=== PATIENT | female | born 1935 | race Caucasian/White ===

== ENCOUNTER 2017-05-20 09:39 | Outpatient (CLI) | payer MEDICARE ==
[2017-05-20] MEDS ORDERED: Gadobenate Dimeglumine 529 MG/1 ML (20ML VIAL) ONE (13:43)
== END 2017-05-20 09:40 | disposition home or self-care (01) ==
LOC: BICMRI 09:39
PROVIDERS: ATTEND Internal Medicine
DX: T85.43XD Leakage of breast prosthesis and implant, subsequent encounter (principal); Z98.82 Breast implant status
CPT/HCPCS: A9579; C8908

== ENCOUNTER 2018-01-07 09:35 | Observation (INO) | payer MEDICARE ==
[2018-01-07] MEDS ORDERED: Ondansetron PF 4 MG/2 ML Vial ONE (10:31)
[2018-01-07 10:35] LABS: #Basophils 0.1 thou/uL (0.0-0.2); #Lymphocytes 1.9 thou/uL (1.20-3.40); #Monocytes 0.7 thou/uL (0.11-0.59); #Neutrophils 4.9 thou/uL (1.40-6.50); %Basophils 0.7 % (0.0-1.0); %Eosinophils 0.4 % (0.0-10.0); %Lymphocytes 25.4 % (21.0-51.0); %Monocytes 9.3 % (0.0-10.0); %Neutrophils 64.2 % (42.0-75.0); Hemoglobin 14.4 g/dL (12.0-16.0); Mean Corpuscular HGB CONC 34.3 g/dL (32.0-36.0); Mean Corpuscular Hemoglobin 29.7 pg (27.0-31.0); Mean Corpuscular Volume 86.8 fL (78.0-98.0); Mean Platelet Volume 9.1 fL (7.4-10.4); Platelet Count 236 thou/uL (130-400); RBC Distribution Width 12.8 % (11.5-14.5); Red Blood Cell (RBC) Count 4.85 mill/uL (4.20-5.40); White Blood Cell (WBC) Count 7.6 thou/uL (4.8-10.8)
[2018-01-07] MEDS ORDERED: Ondansetron ODT 4 MG TAB ONE (10:52)
[2018-01-07] MEDS ORDERED: Ketorolac Tromethamine 30 MG/ML VIAL ONE (11:39)
[2018-01-07 12:51] LABS: Chloride 100 mmol/L (98-107); Potassium 3.6 mmol/L (3.5-5.1); Sodium 132 mmol/L (136-145)
[2018-01-07 12:52] LABS: Calcium 9.2 mg/dL (7.8-10.44); Glucose 97 mg/dL (83-110)
[2018-01-07 12:53] LABS: Globulin 2.8 g/dL (2.4-3.5); Protein, Total 6.8 g/dL (6.0-8.3)
[2018-01-07 12:54] LABS: Bilirubin, Total 0.5 mg/dL (0.2-1.2); Carbon Dioxide 22 mmol/L (23-31)
[2018-01-07 12:55] LABS: Alkaline Phosphatase 89 U/L (40-150)
[2018-01-07 12:56] LABS: BUN (Urea Nitrogen) 37 mg/dL (9.8-20.1); Calc. Creatinine Clearance 0 mL/min (70-130); Estimated GFR-MDRD 18
[2018-01-07 12:58] LABS: ALT (SGPT) 16 U/L (8-55); AST (SGOT) 29 U/L (5-34)
--- NOTE | 2018-01-07 13:11 | RAD ---
RIGHT WRIST THREE VIEWS: HISTORY: Right wrist pain after a fall. COMPARISON: None. FINDINGS: Three views of the right wrist show no evidence of acute fracture or dislocation. Moderate soft tiss ue swelling is seen. No degenerative changes are seen. IMPRESSION: Unremarkable examination. POS: [facility]
[2018-01-07 13:15] LABS: Anion Gap 14 mmol/L (10-20)
--- NOTE | 2018-01-07 14:26 | CT ---
CT HEAD WITHOUT CONTRAST: 01/07/2018 HISTORY: Fall. Trauma. Pain. COMPARISON: None. FINDINGS: The imaged paranasal sinuses/mastoid air cells are well aerated. No displaced calvarial fracture is noted. There is a small focal area of scalp swelling in right supraorbital region. There is no displaced calvarial fracture. There is atherosclerotic calcification of the cavernous carotid arteries and the distal right vertebr al artery. There is no intracranial hemorrhage, midline shift, or mass effect. There is mild cerebral volume lo ss. IMPRESSION: Small area of supraorbital soft tissue swelling involving the scalp, on the right. No associated int racranial hemorrhage or evidence for fracture. POS: [facility]
--- NOTE | 2018-01-07 14:27 | CT ---
CT C-SPINE WITHOUT CONTRAST: HISTORY: Neck injury The vertebral bodies are normal in height. There is degenerative disk narrowing at C4-5, C5-6, C6-7, and C7-T1. Degenerative facet changes are present. The facets are in normal alignment. At the C4-5 level, there is mild left and moderate right foraminal narrowing. At C5-6, there is asym metric left paracentral osteophyte change and appears to be a mild degree of canal stenosis and also some mild right-sided foraminal narrowing. There is no CT evidence for a fracture. The lung apices show emphysematous change. Incidental note is made of bilateral thyroid nodules. This would be better investigated with ultraso und. IMPRESSION: 1. No CT evidence of fracture. 2. Thyroid nodules which would be better investigated with ultrasound examination on a nonemergent b asis. POS: [facility]
[2018-01-07] MEDS ORDERED: Acetaminophen 325 MG TAB PO PRN (15:15)
[2018-01-07] MEDS ORDERED: Ondansetron PF 4 MG/2 ML Vial IVP PRN (15:15)
[2018-01-07] MEDS ORDERED: Ondansetron ODT 4 MG TAB SL PRN (15:15)
[2018-01-07 15:50] VITALS: BMI 27.2
[2018-01-07] MEDS ORDERED: Melatonin 3 MG TAB PO PRN (17:11)
--- NOTE | 2018-01-07 18:50 | HP ---
DATE OF ADMISSION: 01/07/2018 PRIMARY CARE PHYSICIAN: Dr. Jw Ledesma. CHIEF COMPLAINT: Recent fall and TRACEY. HISTORY OF PRESENT ILLNESS: This is a pleasant 82-year-old female who presents to the hospital today for recent fall at home, she was walking to the bathroom with her oxygen cord and as she was walking down the green, the cord wrapped around her foot and caused her to trip. She had hit her forehead on her tile floor and landed on right wrist. She had stated that she felt dizzy after hitting her head , but after sitting there for a few moments with the symptoms resolved. She states she also had a fr ontal lobe headache, but denies any other symptoms. She has a history of PE x2 on Xarelto, COPD, rec ent cellulitis, atrial fibrillation, GERD, hypertension, osteoarthritis, and COPD. She states last w [place] she was bitten by a spider and caused a reddened area on her left upper thigh. She was seen by h er PCP, Dr. Ledesma, who had treated her with oral doxycycline, she had taken doxycycline for a total of 4 days. She states during that time, she also developed some nausea and frequent bouts of diarrh ea. She states she had stopped doxycycline on 01/01/2018. She states since then she has had several bouts of diarrhea a day, she states she would have 5-6 bouts of diarrhea daily. She states her PCP, Dr. Ledesma started her on Lomotil, which she took one dose yesterday, she states since she has not had a bowel movement. She has no chest pain. No shortness of breath or abdominal pain. No nausea o r vomiting. No fever or chills. No recent travel. During the visit in the ER, it was found that he r BMP show creatinine of 2.55, likely secondary to dehydration from diarrhea. She was started on IV fluids with normal saline. She will be admitted overnight for workup and monitoring of her TRACEY. PAST MEDICAL HISTORY: COPD, atrial fibrillation, hypertension, dyslipidemia, pulmonary embolism x2, GERD, osteoarthritis. PAST SURGICAL HISTORY: Appendectomy, cholecystectomy, hysterectomy, bilateral salpingo-oophorectomy, tonsillectomy, history of pneumothorax with treatment of chest tube, arthroscopic knee surgery, lipo ma excision and cataract surgery. SOCIAL HISTORY: She is . She denies smoking, alcohol use and illicit drug use. PSYCHIATRIC HISTORY: Denies any psychiatric history. REVIEW OF SYSTEMS: CONSTITUTIONAL: Denies weight loss or weight gain. No fever or chills. SKIN: No rashes, no itching. Positive bruising anterior forehead from recent fall. EYES: Denies double vision or eye pain. ENT: Denies nose bleed, neck stiffness, pain, or tenderness. CARDIOVASCULAR: Denies chest pain, palpitations, dyspnea or orthopnea. RESPIRATORY: Denies shortness of breath, whe ezing, cough. GASTROINTESTINAL: Denies abdominal pain. No nausea, vomiting. Did report several tita uts of diarrhea over the last week; however, has not had a bowel movement in the last 24 hours. [place] TOURINARY: Denies any urgency, frequency, dysuria. MUSCULOSKELETAL: Denies any weakness or swellin g, mild pain in forehead. NEUROLOGIC: Denies anxiety or depression. ALLERGIES: ASPIRIN, CODEINE, SULFA, TETRACYCLINE. CURRENT MEDICATIONS: 1. Losartan 100 mg daily. 2. Pravastatin 40 mg at bedtime. 3. Anoro Ellipta 62.5 mcg/25 mcg daily. 4. Citalopram 10 mg p.o. daily. 5. Multaq 400 mg oral twice daily. 6. Methadone 40 mg p.o. twice daily. 7. Aricept 5 mg p.o. daily. 8. Gabapentin 300 mg oral daily. 9. Diltiazem 360 mg p.o. daily. 10. Xarelto 20 mg daily. 11. Levothyroxine 75 mcg p.o. daily. PHYSICAL EXAMINATION: VITAL SIGNS: BP 163/72, pulse 65, respirations 20, temperature 97.9 degrees Fahrenheit, O2 saturatio ns 92% on room air. GENERAL: Patient is alert and oriented x3. Mild acute distress noted due to headache. HEENT: Normocephalic. Trauma to forehead with bruise noted. Tenderness to palpation. Pupils are r ound and reactive to light. Extraocular muscles intact. ENT: Oropharynx is within normal limits. Moist mucous membranes. No erythema or exudates noted. NECK: No palpable lymph nodes. No thyromegaly. No carotid bruit. No JVD noted. LUNGS: Clear to auscultation bilaterally. No wheezes, no rhonchi, no rales. CARDIAC: Positive S1, S2, currently in sinus rhythm on the monitor. No murmur, no gallop, no rub no day. ABDOMEN: Obesity. Soft, nontender, bowel sounds present, nondistended. No masses noted. EXTREMITIES: No obvious edema. Strength 5+ bilaterally both upper and lower extremities. Moves all extremities equally. SKIN: No rashes noted. Bruising to forehead noted. NEUROLOGICAL: Nonfocal deficits noted. Moves all extremities. Strength 5+ bilaterally. PSYCHIATRIC: Normal mood and affect. SIGNIFICANT LABORATORY DATA: WBC 7.6, RBC 4.85, hemoglobin 14.4. Sodium 132, potassium 3.6, anion g ap 14, creatinine 2.55, GFR 18, glucose 97, AST 29, ALT 16, alkaline phosphatase 89. DIAGNOSTIC IMAGING: Right wrist x-ray was found to be unremarkable. Brain CT showed a small area ugarte praorbital soft tissue swelling involving the scalp on the right, but no hemorrhage, no evidence of f racture noted. CT cervical spine showed no CT evidence of fracture. ASSESSMENT AND PLAN: 1. Acute kidney injury, likely secondary to dehydration. We will start patient on IV fluids, normal saline at 75 mL an hour. Recheck BMP in the morning. Continue home medications. If no improvement with creatinine, we will obtain renal ultrasound and possibly consult Nephrology. 2. Fall, patient is stable at the moment, monitor patient's vital signs and overall prognosis. Marie ent is able to ambulate around the room without any dizziness or syncope like symptoms. Depending on the patient's progress, we will also consider PT evaluation. 3. Hypertension, continue on patient's home medications and monitor vital signs closely. 4. Chronic obstructive pulmonary disease, patient is stable at the moment, we will add oxygen as nee ded and maintain O2 saturations above 92%. 5. Hypertension, we will continue patient's home medications and monitor closely. Further adjustmen ts depending patient's progress. 6. Dyslipidemia. Continue patient's home medication of pravastatin. 7. History of atrial fibrillation, patient remains in sinus rhythm on the monitor. We will continue patient's anticoagulation with Xarelto along with her Cardizem. We will monitor for changes on the monitor. Currently asymptomatic. 8. History of pulmonary embolism, as above. Continue on patient's home dose of anticoagulation of X arelto, currently denies any chest pain, shortness of breath or symptoms at this time. 9. Deep venous thrombosis prophylaxis with home medication of Xarelto. 10. Gastrointestinal prophylaxis with Protonix 40 mg p.o. twice per daily. Code status discussed with the patient. Patient will be made FULL CODE. Disposition plan based on clinical course. Patient will be monitored overnight and further medical m anagement pending the patient's progress.
[2018-01-07] MEDS: Sodium Chloride 0.9% 1,000 ML IV SCH (20:31)
[2018-01-07] MEDS ORDERED: Famotidine 20 MG TAB PO SCH (21:00)
[2018-01-07] MEDS ORDERED: Donepezil HCl 5 MG TAB PO SCH (21:00)
[2018-01-08 05:18] LABS: #Lymphocytes 2.4 thou/uL (1.20-3.40); #Monocytes 0.6 thou/uL (0.11-0.59); #Neutrophils 2.9 thou/uL (1.40-6.50); %Basophils 0.1 % (0.0-1.0); %Eosinophils 0.4 % (0.0-10.0); %Lymphocytes 40.5 % (21.0-51.0); %Monocytes 10.4 % (0.0-10.0); %Neutrophils 48.6 % (42.0-75.0); Hemoglobin 11.2 g/dL (12.0-16.0); Mean Corpuscular HGB CONC 34.2 g/dL (32.0-36.0); Mean Corpuscular Hemoglobin 29.9 pg (27.0-31.0); Mean Corpuscular Volume 87.4 fL (78.0-98.0); Mean Platelet Volume 8.7 fL (7.4-10.4); Platelet Count 177 thou/uL (130-400); RBC Distribution Width 12.5 % (11.5-14.5); Red Blood Cell (RBC) Count 3.75 mill/uL (4.20-5.40); White Blood Cell (WBC) Count 5.9 thou/uL (4.8-10.8)
[2018-01-08 05:26] LABS: Anion Gap 11 mmol/L (10-20); BUN (Urea Nitrogen) 33 mg/dL (9.8-20.1); Calc. Creatinine Clearance 29 mL/min (70-130); Calcium 8.4 mg/dL (7.8-10.44); Carbon Dioxide 22 mmol/L (23-31); Chloride 107 mmol/L (98-107); Estimated GFR-MDRD 27; Glucose 92 mg/dL (83-110); Potassium 3.7 mmol/L (3.5-5.1); Sodium 136 mmol/L (136-145)
[2018-01-08] MEDS ORDERED: Levothyroxine 150 MCG TAB PO SCH (06:00)
[2018-01-08] MEDS ORDERED: Rivaroxaban 10 MG TAB PO SCH (06:00)
[2018-01-08] MEDS: Dronedarone HCl 400 MG TAB PO SCH ×2 (08:47→17:15)
[2018-01-08] MEDS: Sodium Chloride 0.9% 1,000 ML IV SCH (08:55)
[2018-01-08] MEDS ORDERED: Gabapentin 300 MG CAP PO SCH (09:00)
[2018-01-08] MEDS ORDERED: Escitalopram Oxalate 10 mg Tablet PO SCH (09:00)
[2018-01-08 11:58] VITALS: TEMP 97.9
[2018-01-08] MEDS ORDERED: hydrALAZINE 20 MG/ML VIAL SLOW IVP PRN (13:08)
[2018-01-08 13:41] LABS: Anion Gap 13 mmol/L (10-20); BUN (Urea Nitrogen) 25 mg/dL (9.8-20.1); Calc. Creatinine Clearance 35 mL/min (70-130); Calcium 8.5 mg/dL (7.8-10.44); Carbon Dioxide 19 mmol/L (23-31); Chloride 109 mmol/L (98-107); Estimated GFR-MDRD 34; Glucose 109 mg/dL (83-110); Potassium 3.6 mmol/L (3.5-5.1); Sodium 137 mmol/L (136-145)
[2018-01-08] MEDS ORDERED: Diphenoxylate HCl/Atropine Tablet PO PRN (14:55)
[2018-01-08 16:01] VITALS: BP 147/67
--- NOTE | 2018-01-08 19:33 | DIS ---
DATE OF ADMISSION: 01/07/2018 DATE OF DISCHARGE: 01/08/2018 DISCHARGE DIAGNOSES: 1. Acute on chronic kidney disease, improving. 2. Diarrhea, stable. 3. Fall, stable. 4. Hypertension, stable. 5. History of chronic obstructive pulmonary disease, stable. CONSULTATIONS: None. PERTINENT LABORATORY DATA: WBC 5.9, RBC 3.75, hemoglobin 11.2. Sodium 137, potassium 3.6, anion gap 13, BUN on admission 37, then trended down to 33 and then 25, creatinine on admission 2.55, trended down to 1.81 then 1.49. GFR 18-27, then 234, glucose 109. DIAGNOSTIC IMAGING: CT of head showed small area of supraorbital soft tissue swelling involving the scalp on the right, no associated intracranial hemorrhage or evidence of fracture, CT of the neck marie wed no CT evidence of fracture. Right wrist x-ray showed no evidence of acute fracture or dislocatio n with moderate soft tissue swelling. MICROBIOLOGY: Stool culture negative, C. difficile negative. HOSPITAL COURSE: Ms. Gil is a pleasant 82-year-old female who had presented to the hospital [facility] post fall at home, she had tripped over her oxygen cord walking to the bathroom. She had hit he r head on the tile floor and landed on her right wrist. She had presented with right forehead contus ion along with tenderness to palpation and she had some complaints of right wrist pain. Further diag nostic imaging showed no brain bleed or fracture, did show some soft tissue swelling; however, stable . Right wrist x-ray showed no fracture or dislocation. BMP did show her creatinine 2.55, therefore she was observed overnight for acute on chronic kidney disease. She had several episodes of loose st ools over the last week secondary to doxycycline. She had taken 4 doses her 4 days of doxycycline as outpatient for spider bite. This bite had resolved prior to coming into the hospital. She was roel day with IV normal saline. BMP was closely monitored and it was shown that creatinine trended downwa rd to 1.49. During hospital course, stool cultures were obtained; however, were unremarkable, C. dif f was found to be negative. She was restarted on her home medication of Lomotil that she took for he r diarrhea. Prior to discharge, she was seen and examined with at bedside, she had no compla ints of chest pain, shortness of breath or abdominal pain. She had no symptoms of dizziness or light headedness. She was alert and oriented x4. She was able to ambulate down the green without any acute symptoms. She was instructed to follow up with her primary paramedical aide, Dr. Marsh as outpatient, she was told to check labs and monitor renal function, she had verbalized her understanding and was s cheduled to check labs this week for Dr. Marsh. During [facility] Her home dose of losartan and HCTZ was held, vital signs remained stable; however, it was mandy mmended that she continue to hold these medications until her primary paramedical aide, Dr. Marsh determ ined that it was safe to restart as outpatient. She was found to be medically stable for discharge h [facility] on 01/08/2018. DISCHARGE MEDICATIONS: 1. Diltiazem 360 mg oral daily. 2. Gabapentin 300 mg at bedtime. 3. Aricept 5 mg daily. 4. Famotidine 40 mg oral twice daily. 5. Multaq 400 mg oral twice daily with meals. 6. Escitalopram 10 mg oral daily. 7. Anoro Ellipta one inhalation daily. 8. Pravastatin 40 mg at bedtime. 9. Albuterol sulfate 1 puff every 6 hours as needed for shortness of breath. 10. Xarelto 20 mg daily. 11. Levothyroxine 75 mcg oral daily. 12. Lomotil 1 tab oral 3 times daily as needed for diarrhea. 13. Xanax 0.5 mg oral at bedtime as needed for insomnia. 14. Ambien 5 mg oral at bedtime as needed for insomnia. FOLLOWUP: The patient was instructed to follow up with her primary care physician, Dr. Jw Ledesma in 1-2 weeks. She was also instructed to follow up with her primary paramedical aide, Dr. Marsh in 1-2 weeks along with recheck labs to monitor renal function in 3-4 days. CONDITION ON DISCHARGE: Stable. ACTIVITY: As tolerated. DIET: Renal diet. CODE STATUS: FULL CODE. DISPOSITION: Home on 01/08/2018.
== END 2018-01-08 17:50 | disposition home or self-care (01) ==
LOC: ERS 09:35 → 2SW 13:40
PROVIDERS: ADMIT Internal Medicine Infectious Disease; ATTEND Internal Medicine Infectious Disease
DX: I12.9 Hypertensive chronic kidney disease with stage 1 through stage 4 chronic kidney disease, or unspecified chronic kidney disease (principal); N18.9 Chronic kidney disease, unspecified; N17.9 Acute kidney failure, unspecified; S00.83XA Contusion of other part of head, initial encounter; R51 Headache; J44.9 Chronic obstructive pulmonary disease, unspecified; I48.91 Unspecified atrial fibrillation; K21.9 Gastro-esophageal reflux disease without esophagitis; M19.90 Unspecified osteoarthritis, unspecified site; E78.5 Hyperlipidemia, unspecified; E04.2 Nontoxic multinodular goiter; E66.9 Obesity, unspecified; Z68.27 Body mass index [BMI] 27.0-27.9, adult; Z86.711 Personal history of pulmonary embolism; Z79.01 Long term (current) use of anticoagulants; Z79.899 Other long term (current) drug therapy; Z88.1 Allergy status to other antibiotic agents; Z88.2 Allergy status to sulfonamides; Z88.5 Allergy status to narcotic agent; Z88.8 Allergy status to other drugs, medicaments and biological substances; W01.198A Fall on same level from slipping, tripping and stumbling with subsequent striking against other object, initial encounter
CPT/HCPCS: 70450; 72125; 73110; 80048 ×2; 80053; 85025 ×2; 87045; 87046; 87324; 87328; 87329; 87449 ×2; 87899 ×2; 93005; 96361 ×3; 96374; 99285; G0378 ×2; 36415; J1885; J2405; Q0162

== ENCOUNTER 2018-07-11 21:56 | Inpatient (IN) | payer MEDICARE ==
[2018-07-11 22:45] LABS: #Lymphocytes 2.4 thou/uL (1.20-3.40); #Monocytes 0.8 thou/uL (0.11-0.59); #Neutrophils 3.3 thou/uL (1.40-6.50); %Basophils 0.6 % (0.0-1.0); %Eosinophils 0.2 % (0.0-10.0); %Lymphocytes 36.8 % (21.0-51.0); %Monocytes 11.5 % (0.0-10.0); %Neutrophils 50.9 % (42.0-75.0); Hemoglobin 7.9 g/dL (12.0-16.0); Mean Corpuscular HGB CONC 34.2 g/dL (32.0-36.0); Mean Corpuscular Hemoglobin 30.5 pg (27.0-31.0); Mean Corpuscular Volume 89.2 fL (78.0-98.0); Mean Platelet Volume 8.3 fL (7.4-10.4); Platelet Count 257 thou/uL (130-400); RBC Distribution Width 13.5 % (11.5-14.5); Red Blood Cell (RBC) Count 2.58 mill/uL (4.20-5.40); White Blood Cell (WBC) Count 6.5 thou/uL (4.8-10.8)
--- NOTE | 2018-07-11 23:00 | RAD ---
XR Chest 1 View Portable History: [Weakness] Comparison: Chest radiograph January 2018 Findings: Bilateral calcified breast implants. Multiple calcified granulomas. Lungs are hyperinflated . Scarring both lung bases. Mild calcifications of the aorta. Heart size upper limits of normal. Cerclage wire projecting over the lateral left fifth rib. Impression: Chronic findings. No acute abnormality.
[2018-07-11 23:08] LABS: ALT (SGPT) 8 U/L (8-55); AST (SGOT) 15 U/L (5-34); Albumin 3.6 g/dL (3.4-4.8); Alkaline Phosphatase 72 U/L (40-150); BUN (Urea Nitrogen) 33 mg/dL (9.8-20.1); Bilirubin, Total 0.2 mg/dL (0.2-1.2); Calc. Creatinine Clearance 0 mL/min (70-130); Calcium 9.7 mg/dL (7.8-10.44); Carbon Dioxide 26 mmol/L (23-31); Chloride 101 mmol/L (98-107); Estimated GFR-MDRD 26; Globulin 2.1 g/dL (2.4-3.5); Glucose 110 mg/dL (83-110); Potassium 3.9 mmol/L (3.5-5.1); Protein, Total 5.7 g/dL (6.0-8.3); Sodium 136 mmol/L (136-145)
[2018-07-11 23:14] LABS: Anion Gap 13 mmol/L (10-20)
[2018-07-12] MEDS ORDERED: Pantoprazole 80 MG, Admixture Fee 1 EACH in Sodium Chloride 0.9% 100 ML IVPB SCH (01:15)
[2018-07-12] MEDS ORDERED: Famotidine/PF 20 mg/2ml Vial ONE (01:52)
[2018-07-12] MEDS ORDERED: Acetaminophen 650 MG Suppository PR PRN (03:05)
[2018-07-12] MEDS ORDERED: Bisacodyl 5 MG TAB PO PRN (03:05)
[2018-07-12] MEDS ORDERED: Acetaminophen 325 MG TAB PO PRN (03:05)
[2018-07-12 03:52] LABS: #Basophils 0.1 thou/uL (0.0-0.2); #Lymphocytes 2.6 thou/uL (1.20-3.40); #Monocytes 0.7 thou/uL (0.11-0.59); #Neutrophils 3.7 thou/uL (1.40-6.50); %Basophils 0.7 % (0.0-1.0); %Eosinophils 0.3 % (0.0-10.0); %Monocytes 9.6 % (0.0-10.0); %Neutrophils 52.4 % (42.0-75.0); Hemoglobin 7.5 g/dL (12.0-16.0); Mean Corpuscular HGB CONC 34.3 g/dL (32.0-36.0); Mean Corpuscular Hemoglobin 30.4 pg (27.0-31.0); Mean Corpuscular Volume 88.9 fL (78.0-98.0); Mean Platelet Volume 8.4 fL (7.4-10.4); Platelet Count 232 thou/uL (130-400); RBC Distribution Width 13.6 % (11.5-14.5); Red Blood Cell (RBC) Count 2.46 mill/uL (4.20-5.40)
--- NOTE | 2018-07-12 04:07 | HP ---
PRIMARY CARE PROVIDER: Jw Ledesma MD CHIEF COMPLAINT: Black stools. HISTORY OF PRESENT ILLNESS: Ms. Gil is a pleasant 82-year-old lady, who was seen at [facility] on July 12, 2018. She reports that she has a history of pulmonary embolism x2, the last one was reportedly about 3 years ago. She is on rivaroxaban. She reports that over the last week, she has noticed that her blood pressure has been dropping. She has also been lightheaded and dizzy over the last one week. She reports low energy levels. Over the last week, she has also had black foul-smelling stools. She was seen by her primary care provider yesterday. She had blood work drawn, the result is expected to come back today. Following the appointment, she went home and found that her systolic blood pressure was 112. She contacted her primary care provider and was advised to go to the emergency room for evaluation. She denies any chest pain. She denies any shortness of breath. She denies any nausea or vomiting. She denies any abdominal pain. REVIEW OF SYSTEMS: All other systems reviewed and found to be negative. PAST MEDICAL HISTORY: Pulmonary embolism x2, gastroesophageal reflux disease, hypertension, osteoarthritis, chronic obstructive pulmonary disease. PAST SURGICAL HISTORY: cholecystectomy, hysterectomy, bilateral oophorectomy, left wrist surgery, left third finger surgery, tonsillectomy. SOCIAL HISTORY: Occasional alcohol use, no tobacco use or recreational drug use. CODE STATUS: I discussed her code status. She is full code. FAMILY HISTORY: Her father of a myocardial infarction. Her mother had hypertension. ALLERGIES: ASPIRIN, CODEINE, LISINOPRIL, NONSTEROIDAL ANTI-INFLAMMATORY DRUGS, SULFA, TETRACYCLINES, TRAZODONE. CURRENT MEDICATIONS: 1. Losartan 100 mg daily. 2. Diltiazem 360 mg daily. 3. Pravastatin 40 mg daily. 4. Famotidine 40 mg 2 times a day. 5. Levothyroxine 75 mcg daily. 6. Anoro Ellipta inhalation. 7. Rivaroxaban 20 mg daily. 8. Multaq 400 mg daily. 9. Alprazolam 0.5 mg as needed. 10. Zolpidem 5 mg as needed. 11. Albuterol inhalation p.r.n. PHYSICAL EXAMINATION: GENERAL: On examination, Ms. Gil is awake and alert, not in acute distress. VITAL SIGNS: Blood pressure is 137/47, pulse 63, respiratory rate 14, and oxygen saturation 94% on room air. She is afebrile. EYES: She has conjunctival pallor, no scleral icterus. ENT: Moist mucosal membranes. No oropharyngeal erythema or exudates. NECK: Supple, nontender, trachea is midline. RESPIRATORY: Accessory muscles of breathing are not active. Chest wall movements are symmetric bilaterally. Lungs are clear to auscultation without wheeze, rhonchi, or crepitations. CARDIOVASCULAR: S1 and S2 are heard, regular. Peripheral pulses palpable. No carotid bruit. No pericardial rub. ABDOMEN: Soft, nontender, bowel sounds heard, no hepatomegaly, no splenomegaly. SKIN: No rashes or subcutaneous nodules. LYMPHATIC: No cervical lymphadenopathy. NEUROLOGIC: Cranial nerves 2 through 12 intact, deep tendon reflexes 2+. MUSCULOSKELETAL: Power is 5/5 in all 4 extremities. PSYCHIATRIC: Normal mood, normal affect, the patient is oriented to person, place, and time. LABORATORY DATA: Ms. Gil's labs and investigations were reviewed. I reviewed her electrocardiogram, which shows normal sinus rhythm with first-degree AV block, no ST changes to suggest an acute coronary syndrome. I also reviewed her chest x-ray, which does not show any pulmonary infiltrates. She also had CT scan of the abdomen and pelvis, report is pending. She has normocytic anemia with hemoglobin 7.9, hemoglobin was 11.2 on January 08, 2018. White count and platelet count are normal. Electrolytes are normal. Blood urea nitrogen is elevated at 33, creatinine is elevated at 1.85. Her creatinine was 1.49 on January 08, 2018. She has an unremarkable liver profile and normal troponin I. ASSESSMENT AND PLAN: Ms. Gil is a pleasant 82-year-old lady, who was seen at [facility] on July 12, 2018. Her problem list includes: 1. Symptomatic anemia: Ms. Gil is presenting with symptomatic anemia. She will be admitted to the hospital for further management. 2. Anemia of acute blood loss: This is secondary to upper gastrointestinal bleed. 3. Upper gastrointestinal bleed: She will be treated with a proton pump inhibitor drip. We will recheck her H and H. Gastroenterology Service being consulted for opinion and help with management. She will be kept n.p.o. for now. We will also hold rivaroxaban. 4. Hypertension: We will monitor the patient's vital signs and titrate antihypertensives as needed. 5. Chronic obstructive pulmonary disease: Appears to be stable. 6. Acute on chronic stage 3 kidney disease: We will provide hydration and recheck her creatinine. Many thanks for allowing me to participate in your patient's care. Please feel free to contact me with any questions or concerns. LEVEL OF RISK: High. LEVEL OF COMPLEXITY: High. Job ID: [id number]
[2018-07-12 04:09] LABS: Anion Gap 12 mmol/L (10-20); BUN (Urea Nitrogen) 33 mg/dL (9.8-20.1); Calc. Creatinine Clearance 0 mL/min (70-130); Calcium 9.6 mg/dL (7.8-10.44); Carbon Dioxide 26 mmol/L (23-31); Chloride 102 mmol/L (98-107); Estimated GFR-MDRD 31; Glucose 110 mg/dL (83-110); Potassium 3.7 mmol/L (3.5-5.1); Sodium 136 mmol/L (136-145)
[2018-07-12] MEDS: Sodium Chloride 0.9% 1,000 ML IV SCH ×2 (05:25→21:18)
[2018-07-12 05:34] VITALS: BMI 24.8
[2018-07-12] MEDS ORDERED: Prevnar 13-Val Conj/PF 0.5 ML SYRINGE IM ONE (06:30)
--- NOTE | 2018-07-12 07:28 | CT ---
CT ABDOMEN AND PELVIS WITHOUT CONTRAST: Date: 07/11/18 HISTORY: Abdominal pain. GI bleed. COMPARISON: None. FINDINGS: Mild bronchiectasis and scarring in both lower lobes. No significant pericardial effusion. There are polycystic kidneys bilaterally. Some of these cysts measure greater than normal fluid atten uation. Mild vascular calcifications of the arcuate vessels. Single 2 mm calculus inferior left renal collect ing system. There is a very low grade infrarenal focal area of ectasia of the aorta which measures up to 2.7 cm in size. No retroperitoneal adenopathy. No dilated loops of large or small bowel. There is moderate diverticul ar disease of the sigmoid colon. No active inflammation. Noncontrast evaluation of the liver, spleen, and pancreas are unremarkable. Moderate degenerative dexter nges of the lumbar spine. IMPRESSION: 1. 2 mm calculus inferior left renal collecting system. 2. Polycystic kidneys. Some of these cysts are greater than fluid attenuation. Nonemergent follow-up renal ultrasound is recommended in 2-3 months. Alternatively, a renal protocol CT or MRI could be pe rformed if patient's renal function allows. 3. Mild focal ectasia of the infrarenal abdominal aorta measuring less than 3 cm. 4. No evidence for bowel obstruction. POS: HOME
[2018-07-12 10:56] LABS: Hemoglobin 7.4 g/dL (12.0-16.0)
[2018-07-12] MEDS: Pantoprazole 80 MG in Sodium Chloride 0.9% 100 ML IVP SCH ×2 (13:44→22:04)
[2018-07-12 16:06] LABS: Hemoglobin 7.3 g/dL (12.0-16.0)
--- NOTE | 2018-07-12 21:38 | CON ---
DATE OF CONSULTATION: 07/12/2018 CHIEF COMPLAINT: Black stools. HISTORY OF PRESENT ILLNESS: Ms. Gil is an 82-year-old woman, who started feeling weak and dizzy and have shortness of breath on exertion a week ago. Several days ago, she started passing black malodorous stools once per day. She has had some nausea, but no vomiting. No focal abdominal pain other than one episode of right lower quadrant pain yesterday that lasted for few hours. No chest pain, but she does have shortness of breath on exertion. She is taking Xarelto for history of pulmonary embolism. She recently had pulmonary embolism and was treated with warfarin, but could never get her INR well stabilized and she later changed to Xarelto. She took the Xarelto for a period of time and then discontinued it for a while and then had a recurrent PE and she has since been restarted on the Xarelto. She does have chronic kidney disease and follows with Dr. Marsh. She takes Xarelto 20 mg each morning. Her last dose of Xarelto was yesterday morning. She had EGD and colonoscopy back in 2014. The colonoscopy showed diverticulosis. The upper endoscopy was unremarkable. She had an irregular Z-line, which was biopsied and shown to be negative for Peterson's. She did have an adenoma removed at the time of colonoscopy. PAST MEDICAL HISTORY: Pulmonary embolism, gastroesophageal reflux disease, hypertension, COPD, osteoarthritis, and diverticulosis. PAST SURGICAL HISTORY: Appendectomy, cholecystectomy, hysterectomy, oophorectomy, wrist surgery, and tonsillectomy. FAMILY HISTORY: Negative for GI malignancy. SOCIAL HISTORY: No alcohol, tobacco, or drugs. ALLERGIES: ASPIRIN, NSAID, SULFA, TETRACYCLINE, CODEINE, TRAZODONE, DOXYCYCLINE, LISINOPRIL. CURRENT OUTPATIENT MEDICATIONS: 1. Diltiazem. 2. Albuterol. 3. Alprazolam. 4. Levothyroxine. 5. Famotidine 40 mg twice daily. 6. Xarelto. 7. Multaq. 8. Pravastatin. 9. Anoro Ellipta. REVIEW OF SYSTEMS: Negative x10 systems reviewed except as stated in the history of present illness. PHYSICAL EXAMINATION: VITAL SIGNS: Temperature 98.7, pulse 76, and blood pressure 119/53. GENERAL: She is in no acute distress. Alert and oriented x3. HEENT: Eyes have no scleral icterus. Oropharynx is clear without lesions. No cervical or supraclavicular lymphadenopathy. LUNGS: Clear to auscultation bilaterally. HEART: Regular rate and rhythm without murmur. ABDOMEN: Soft, nontender, and nondistended. Bowel sounds are present. EXTREMITIES: No lower extremity edema. Cranial nerves are grossly intact. LABORATORY DATA: White blood cell count 7.0, hemoglobin 7.4, platelets 232. Hemoglobin last January was 11.2. INR was 1.8 on presentation. Creatinine 1.59, albumin 3.6. Bilirubin 0.2, AST 15, ALT 8, alkaline phosphatase 72. IMPRESSION: 1. Acute gastrointestinal bleed presenting with melena and symptomatic anemia. She has been on Xarelto 20 mg daily. She has been on famotidine. 2. Anemia of acute blood loss. 3. Chronic renal insufficiency. RECOMMENDATIONS: 1. Blood transfusion is necessary. 2. Proton pump inhibitor. 3. We will plan for EGD tomorrow. Her last dose of Xarelto was the morning of 07/11/2018. It certainly could take longer for her to metabolize the Xarelto and excrete it given her chronic renal insufficiency and advanced age. 4. If Xarelto to be restarted in the future, then lower dose can be considered. Another alternative might be Eliquis, which may have a shorter half-life. Job ID: [id number]
[2018-07-13 05:18] LABS: #Lymphocytes 2.1 thou/uL (1.20-3.40); #Monocytes 0.7 thou/uL (0.11-0.59); #Neutrophils 2.5 thou/uL (1.40-6.50); %Basophils 0.8 % (0.0-1.0); %Eosinophils 0.2 % (0.0-10.0); %Lymphocytes 39.1 % (21.0-51.0); %Monocytes 12.5 % (0.0-10.0); %Neutrophils 47.4 % (42.0-75.0); Hemoglobin 7.4 g/dL (12.0-16.0); Mean Corpuscular HGB CONC 33.1 g/dL (32.0-36.0); Mean Corpuscular Volume 90.7 fL (78.0-98.0); Mean Platelet Volume 8.4 fL (7.4-10.4); Platelet Count 231 thou/uL (130-400); RBC Distribution Width 13.7 % (11.5-14.5); Red Blood Cell (RBC) Count 2.46 mill/uL (4.20-5.40); White Blood Cell (WBC) Count 5.3 thou/uL (4.8-10.8)
[2018-07-13 05:28] LABS: INR-International Normal Ratio 1.2
[2018-07-13 05:37] LABS: Anion Gap 8 mmol/L (10-20); BUN (Urea Nitrogen) 20 mg/dL (9.8-20.1); Calc. Creatinine Clearance 42 mL/min (70-130); Calcium 9.1 mg/dL (7.8-10.44); Carbon Dioxide 25 mmol/L (23-31); Chloride 108 mmol/L (98-107); Estimated GFR-MDRD 47; Glucose 92 mg/dL (83-110); Sodium 137 mmol/L (136-145)
--- NOTE | 2018-07-13 07:18 | PDOC.PN ---
- Subjective Encounter Start Date: 07/13/18 Encounter Start Time: 15:00 Subjective: Patient had EGD this AM, no source of bleeding. Last colonoscopy -: had some villous adenomas, plan for repeat colonoscopy tomorrow. -: H/H now stable. If remains that way can go home after procedure tomorrow - Objective MAR Reviewed: Yes Vital Signs & Weight: Vital Signs (12 hours) Temp Pulse Resp BP Pulse Ox 07/13/18 04:00 98.0 F 75 18 125/57 L 100 07/12/18 20:00 97.7 F 76 19 143/65 H 98 Weight Weight 149 lb 8 oz I&O: 07/12/18 07/13/18 07/14/18 06:59 06:59 06:59 Intake Total 2681 Balance 2681 Result Diagrams: 07/13/18 04:52 07/13/18 04:52 Phys Exam - Physical Examination Constitutional: NAD HEENT: moist MMs Respiratory: no wheezing, no rales, no rhonchi Cardiovascular: RRR 2/6 TRAV Gastrointestinal: soft, non-tender, positive bowel sounds Neurological: non-focal, moves all 4 limbs Psychiatric: normal affect, A&O x 3 Dx/Plan (1) Acute blood loss anemia Code(s): D62 - ACUTE POSTHEMORRHAGIC ANEMIA Status: Acute Comment: Hemoglobin stable at 7.4, no need for transfusion at this point, getting IV iron (2) GI bleed Code(s): K92.2 - GASTROINTESTINAL HEMORRHAGE, UNSPECIFIED Status: Acute (3) Hx pulmonary embolism Code(s): Z86.711 - PERSONAL HISTORY OF PULMONARY EMBOLISM Status: Chronic Comment: holding Xarelto, consider restart at lower dose or Elliquis (4) GERD (gastroesophageal reflux disease) Code(s): K21.9 - GASTRO-ESOPHAGEAL REFLUX DISEASE WITHOUT ESOPHAGITIS Status: Chronic (5) HTN (hypertension) Code(s): I10 - ESSENTIAL (PRIMARY) HYPERTENSION Status: Chronic Qualifiers: Hypertension type: essential hypertension Qualified Code(s): I10 - Essential (primary) hypertension (6) COPD (chronic obstructive pulmonary disease) Status: Chronic (7) Osteoarthritis Code(s): M19.90 - UNSPECIFIED OSTEOARTHRITIS, UNSPECIFIED SITE Status: Chronic (8) Acute renal failure superimposed on stage 3 chronic kidney disease Code(s): N17.9 - ACUTE KIDNEY FAILURE, UNSPECIFIED; N18.3 - CHRONIC KIDNEY DISEASE, STAGE 3 (MODERATE) Status: Acute Comment: improved with fluids - Plan cont current plan of care EGD normal, colonoscopy tomorrow * . - Discharge Day Encounter end time: 15:10
[2018-07-13] MEDS ORDERED: Ondansetron PF 4 MG/2 ML Vial ONE (11:26)
[2018-07-13] MEDS ORDERED: Promethazine HCl 25 MG/ML VIAL ONE (11:26)
[2018-07-13] MEDS ORDERED: Promethazine HCl 25 MG/ML VIAL IM PRN (11:30)
[2018-07-13] MEDS ORDERED: Ondansetron HCl/PF 4 MG/2 ML Vial IVP PRN (11:30)
[2018-07-13] MEDS ORDERED: Promethazine HCl 25 MG/ML VIAL SLOW IVP PRN (11:30)
[2018-07-13] MEDS ORDERED: Sodium Chloride For Inhalation 0.9% 3 ML NEB ONE (11:48)
[2018-07-13] MEDS ORDERED: Iron, Sodium Ferric Gluconate 250 MG in Sodium Chloride 0.9% 100 ML IVPB SCH (13:45)
[2018-07-13] MEDS: Sodium Chloride 0.9% 1,000 ML IV SCH (14:24)
[2018-07-13] MEDS ORDERED: GoLYTELY 4,000 ml Bottle PO SCH (16:00)
[2018-07-13] MEDS ORDERED: PROPOFOL 200 MG/20 ML VIAL ONE (16:38)
--- NOTE | 2018-07-13 19:15 | OP ---
DATE OF PROCEDURE: 07/13/2018 PREPROCEDURE DIAGNOSES: 1. Melena, post hemorrhagic anemia. 2. Chronic anticoagulation use. 3. Prior history of colon polyps. POSTPROCEDURE DIAGNOSES: Normal esophagogastroduodenoscopy with no stigmata of recent bleeding and yellow bile in the stomach. Exam complete to the third portion of the duodenum. RECOMMENDATIONS: 1. I have talked with the patient's family and the patient recommended to go ahead and proceed with colonoscopy. She has had polyps with tubulovillous adenomas in 2011 and 2014. 2. We would give her IV iron for iron replacement. ANESTHESIA: TIVA. PROCEDURE IN DETAIL: The patient was informed of the risks, benefits, possible complications of endoscopy including perforation, reaction to medication, and aspiration. Informed consent was obtained. The patient was brought to the endoscopy suite, where she was sedated in a gradual fashion. Once she was comfortable, a bite block was placed inside the orifice. The endoscope was advanced to the esophagus, stomach, and second and third portion of the duodenum and slowly removed. There was good visualization of mucosa. There were no mass, lesions, or AV malformations identified. There was no stigmata of recent bleeding. Reviewing her old records, she had some history of some prominent gastric folds that have been evaluated in EUS in the past were negative. I saw no evidence of submucosal lesions or prominent fold at this time. Retroflexed views in the stomach were normal. The esophagus was normal. There was a small hiatal hernia. There was no stigmata of inflammation or bleeding. The scope was removed. The patient tolerated the procedure well. There were no complications. Job ID: [id number]
--- NOTE | 2018-07-14 07:49 | PDOC.PN ---
- Subjective Encounter Start Date: 07/14/18 Encounter Start Time: 10:50 Subjective: Patient without complaint. Had a low grade fever this AM, but -: no other symtoms, now resolved. Colonoscopy this AM with few -: small polyps, but no evidence of bleeding. No more melena. - Objective MAR Reviewed: Yes Vital Signs & Weight: Vital Signs (12 hours) Temp Pulse Resp BP Pulse Ox 07/14/18 07:42 100.5 F H 84 20 138/59 L 92 L 07/14/18 06:00 97.9 F 85 16 136/61 95 07/13/18 20:00 97.4 F L 79 16 133/63 94 L Weight Weight 149 lb 8 oz I&O: 07/13/18 07/14/18 07/15/18 06:59 06:59 06:59 Intake Total 2681 960 Balance 2681 960 Result Diagrams: 07/13/18 04:52 07/13/18 04:52 Phys Exam - Physical Examination Constitutional: NAD HEENT: moist MMs Respiratory: no wheezing, no rales, no rhonchi Cardiovascular: RRR 3/6 systolic murmur Gastrointestinal: soft, non-tender, positive bowel sounds Neurological: non-focal, moves all 4 limbs Psychiatric: normal affect, A&O x 3 Dx/Plan (1) Acute blood loss anemia Code(s): D62 - ACUTE POSTHEMORRHAGIC ANEMIA Status: Acute Comment: getting IV iron, recheck Hemoglobin this AM (2) GI bleed Code(s): K92.2 - GASTROINTESTINAL HEMORRHAGE, UNSPECIFIED Status: Acute Comment: appears to have stopped bleeding, EGD negative, colonoscopy today (3) Hx pulmonary embolism Code(s): Z86.711 - PERSONAL HISTORY OF PULMONARY EMBOLISM Status: Chronic Comment: holding Xarelto, will restart Elliquis low dose today after colonoscopy (4) GERD (gastroesophageal reflux disease) Code(s): K21.9 - GASTRO-ESOPHAGEAL REFLUX DISEASE WITHOUT ESOPHAGITIS Status: Chronic (5) HTN (hypertension) Code(s): I10 - ESSENTIAL (PRIMARY) HYPERTENSION Status: Chronic Qualifiers: Hypertension type: essential hypertension Qualified Code(s): I10 - Essential (primary) hypertension (6) COPD (chronic obstructive pulmonary disease) Status: Chronic (7) Osteoarthritis Code(s): M19.90 - UNSPECIFIED OSTEOARTHRITIS, UNSPECIFIED SITE Status: Chronic (8) Acute renal failure superimposed on stage 3 chronic kidney disease Code(s): N17.9 - ACUTE KIDNEY FAILURE, UNSPECIFIED; N18.3 - CHRONIC KIDNEY DISEASE, STAGE 3 (MODERATE) Status: Acute Comment: improved with fluids - Plan cont current plan of care, out of bed/ambulate, DVT proph w/SCDs if H/H ok can go home on low dose Eliquis. F/u with PCP for -: recheck CBC next week and with GI in 2-3 weeks. * . - Discharge Day Encounter end time: 11:10
[2018-07-14] MEDS ORDERED: Pantoprazole 40 MG VIAL IVP SCH (09:00)
--- NOTE | 2018-07-14 10:08 | OP ---
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 PROCEDURE PERFORMED: Colonoscopy with snare polypectomy. INDICATIONS: 1. Melena. 2. Acute blood loss anemia. 3. Personal history of colon polyps. 4. EGD was negative for any source of bleeding yesterday. MEDICATIONS: See Anesthesia record. FINDINGS: After discussion of the risks, benefits, and alternatives of the procedure, informed consent was obtained and witnessed. Pre-endoscopic cardiopulmonary examination was satisfactory. Time-out was performed before sedation was achieved. Sedation was achieved with Anesthesia assistance in the endoscopy unit. Digital rectal exam was performed, which was unremarkable. A Pentax adult colonoscope was inserted into the anus and passed forward to the cecum in the usual fashion. The cecal base was identified by the appendiceal orifice as well as the ileocecal valve. The terminal ileum was intubated and the ileal mucosa appeared normal. The colonoscope was slowly withdrawn in a gradual and circumferential manner with careful examination of the entire colonic mucosa. The quality of the prep was good. There was no evidence of any old blood or active bleeding anywhere throughout the colon. There was no bleeding lesion visualized. In the transverse colon, there were three small polyps, all measuring about 2 mm in diameter. These were all completely removed with cold snare and retrieved for pathology. There was diverticulosis in the sigmoid colon. Retroflexion in the rectum demonstrates nonbleeding internal hemorrhoids. The colonoscope was completely withdrawn and the patient allowed to recover. The patient tolerated the procedure well. There were no immediate postprocedure complications. IMPRESSION: 1. Three small polyps in the transverse colon, all completely removed with cold snare and retrieved for pathology. 2. Sigmoid diverticulosis without diverticulitis. 3. Internal hemorrhoids, nonbleeding. 4. No evidence of any old blood or active bleeding or bleeding lesion throughout the colon or terminal ileum. 5. Otherwise, normal colonoscopy to the terminal ileum. RECOMMENDATIONS: 1. Advance diet. 2. Avoid over anticoagulation. 3. If melena becomes recurrent, outpatient capsule endoscopy could be considered. 4. Follow up pathology on the colon polyps. 5. Follow up in the GI Clinic with Dr. Ho in the next 2 to 3 weeks. GI will sign off. Please call back with any questions or concerns. Job ID: [id number]
[2018-07-14] MEDS: Sodium Chloride 0.9% 1,000 ML IV SCH (10:17)
[2018-07-14 11:26] LABS: #Lymphocytes 2.3 thou/uL (1.20-3.40); #Monocytes 0.8 thou/uL (0.11-0.59); #Neutrophils 2.9 thou/uL (1.40-6.50); %Basophils 0.5 % (0.0-1.0); %Eosinophils 0.3 % (0.0-10.0); %Lymphocytes 38.3 % (21.0-51.0); %Neutrophils 47.8 % (42.0-75.0); Hemoglobin 7.1 g/dL (12.0-16.0); Mean Corpuscular HGB CONC 33.8 g/dL (32.0-36.0); Mean Corpuscular Hemoglobin 30.7 pg (27.0-31.0); Mean Corpuscular Volume 90.7 fL (78.0-98.0); Mean Platelet Volume 8.1 fL (7.4-10.4); Platelet Count 232 thou/uL (130-400); RBC Distribution Width 13.6 % (11.5-14.5); Red Blood Cell (RBC) Count 2.31 mill/uL (4.20-5.40)
[2018-07-14 11:47] VITALS: BP 135/62; TEMP 98.5
[2018-07-14] MEDS ORDERED: Apixaban 2.5 MG TAB PO SCH (21:00)
--- NOTE | 2018-07-15 03:36 | DIS ---
DATE OF ADMISSION: 07/12/2018 DATE OF DISCHARGE: 07/14/2018 PRIMARY CARE PHYSICIAN: Dr. Jw Ledesma. REASON FOR ADMISSION: Melena with anemia. DISCHARGE DIAGNOSES: 1. Acute blood loss anemia. 2. GI bleed secondary to Xarelto. 3. History of pulmonary embolism, changing to low-dose Eliquis. 4. Gastroesophageal reflux disease. 5. Hypertension. 6. Chronic obstructive pulmonary disease. 7. Osteoarthritis. 8. Acute on chronic renal failure, improved. PROCEDURES: 1. CT of the abdomen and pelvis without contrast showing a 2 mm calculus inferior left renal collecting system, nonobstructing. 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 2. EGD showing normal esophagogastroduodenoscopy with no recent bleeding evidence. 3. Colonoscopy showing 3 small polyps in transverse colon, removed with cold snare. Sigmoid diverticulosis. Internal hemorrhoids, not bleeding and no evidence of any old bleeding. CONSULTATIONS: Gastroenterology, Dr. Moffett with Dr. Willams and case assisting. SUMMARY OF HOSPITAL COURSE: This is an 82-year-old white female with history of pulmonary embolism x2, on Xarelto. She noticed her blood pressure dropping over the last week, lightheaded and dizzy, low energy levels, and black foul-smelling stools for 1 week. She came to the hospital, was noted to have a drop in her hemoglobin down to the 7s. The patient was admitted for likely bleed secondary to her Xarelto. Xarelto was held. Hemoglobin was checked serially and she had no further drop. Gastroenterology was consulted. The patient had an EGD and colonoscopy done without evidence of any active bleeding. She does have chronic renal insufficiency which was exacerbated on presentation up to a creatinine of 1.85, improved to 1.12 with fluids. Given her age and renal insufficiency, it was determined to take her off the Xarelto and switch her to a low-dose Eliquis. The patient is doing well on the day of discharge, had no further melena. Hemoglobin had been stable, we are waiting for the recheck from today. If it continues to be stable, she will be discharged home. DISCHARGE MANAGEMENT: Discharged home. FOLLOWUP: Follow up with Dr. Ledesma next week for recheck CBC and with Dr. Sunshine Ho in the GI clinic in 2 to 3 weeks to follow up on pathology. ACTIVITY: As tolerated. DIET: Healthy heart, low-sodium diet. MEDICATIONS: 1. Eliquis 2.5 mg twice a day, 60 tablets dispensed. 2. Continue albuterol inhaler as needed. 3. Xanax 0.5 mg at night as needed. 4. Diltiazem 24 hours CD 360 mg each night. 5. Lomotil as needed. 6. Multaq 400 mg twice a day. 7. Famotidine 40 mg twice a day. 8. Synthroid 75 mcg daily. 9. Pravastatin 40 mg at night. 10. Anoro Ellipta one inhalation each morning. TIME SPENT: Arranging the details of this discharge took 32 minutes. Job ID: [id number]
== END 2018-07-14 14:23 | disposition home or self-care (01) | DRG 378 ==
LOC: ERS 21:56 → 2SE 07-12 04:59
PROVIDERS: ADMIT Internal Medicine; ATTEND Internal Medicine
PROC: 0DJ08ZZ Inspection of Upper Intestinal Tract, Via Natural or Artificial Opening Endoscopic (ICD-10-PCS; principal; 2018-07-13)
PROC: 0DBL8ZZ Excision of Transverse Colon, Via Natural or Artificial Opening Endoscopic (ICD-10-PCS; 2018-07-14)
DX: K92.1 Melena (principal); D62 Acute posthemorrhagic anemia; I12.0 Hypertensive chronic kidney disease with stage 5 chronic kidney disease or end stage renal disease; N17.9 Acute kidney failure, unspecified; K21.9 Gastro-esophageal reflux disease without esophagitis; M19.90 Unspecified osteoarthritis, unspecified site; J44.9 Chronic obstructive pulmonary disease, unspecified; N18.3 Chronic kidney disease, stage 3 (moderate); K63.5 Polyp of colon; K57.30 Diverticulosis of large intestine without perforation or abscess without bleeding; K64.8 Other hemorrhoids; Z86.711 Personal history of pulmonary embolism; Z90.49 Acquired absence of other specified parts of digestive tract; Z90.710 Acquired absence of both cervix and uterus; Z90.89 Acquired absence of other organs; Z90.722 Acquired absence of ovaries, bilateral; Z88.5 Allergy status to narcotic agent; Z88.2 Allergy status to sulfonamides; Z88.8 Allergy status to other drugs, medicaments and biological substances; Z79.01 Long term (current) use of anticoagulants
CPT/HCPCS: 36415; 71045; 74176; 80048; 80053; 84484; 85025; 85610; 86850; 86900; 86901; 88305; 93005; C9113; J2405; J2550; J2704; J2916; J3490; J7620; S0028

== ENCOUNTER 2019-09-26 13:04 | Outpatient (CLI) | payer MEDICARE, OTHER ==
--- NOTE | 2019-09-26 13:20 | RAD ---
XR Chest Pa Lat STANDARD HISTORY: Dyspnea COMPARISON: 01/09/2019 FINDINGS: The heart size is normal. The lungs are well expanded without focal areas of consolidation, pneumoth orax or pleural effusions chronic parenchymal changes and evidence of old granulomatous disease are again seen. There are bilateral calcified breast implants. Degenerative changes are present in the sp ine.. IMPRESSION: Stable exam. No radiographic evidence of acute cardiopulmonary process.
== END 2019-09-26 13:05 | disposition home or self-care (01) ==
LOC: BICRAD 13:04
PROVIDERS: ATTEND Internal Medicine Critical Care Medicine
DX: R06.00 Dyspnea, unspecified (principal)
CPT/HCPCS: 71046

== ENCOUNTER 2021-01-05 06:24 | Inpatient (IN) | payer MEDICARE, OTHER ==
[2021-01-05] MEDS ORDERED: Morphine 4 MG/ML VIAL SLOW IVP PRN (08:27)
[2021-01-05] MEDS ORDERED: Losartan 25 MG TAB PO SCH (09:00)
[2021-01-05] MEDS ORDERED: Acetaminophen 325 MG TAB PO PRN (09:02)
[2021-01-05] MEDS ORDERED: Senokot S 8.6-50 MG TAB PO PRN (09:02)
[2021-01-05] MEDS ORDERED: Sodium Chloride 0.9% 1,000 ML IV SCH (09:15)
[2021-01-05] MEDS: Morphine 4 MG/ML VIAL SLOW IVP PRN ×2 (09:22→14:00)
[2021-01-05] MEDS ORDERED: ALPRAZolam 0.5 MG TAB PO PRN ×2 (09:40→12:41)
[2021-01-05] MEDS ORDERED: Zolpidem Tartrate 5 MG TAB PO PRN ×2 (09:40→12:43)
[2021-01-05 09:42] VITALS: BMI 23.4
[2021-01-05] MEDS ORDERED: CEFEPIME HCL IN DEXTROSE 5 % 1 GM/50 ML BAG IVPB SCH (09:45)
[2021-01-05] MEDS ORDERED: Vancomycin 1 GM in Premix Bag 1 BAG IVPB SCH (10:15)
[2021-01-05 11:10] LABS: Troponin I 0.041 ng/mL (< 0.028)
[2021-01-05] MEDS ORDERED: Acetaminophen 500 MG TAB PO SCH (13:00)
[2021-01-05] MEDS: Cefepime 2 GM in Sodium Chloride 0.9% 100 ML IVPB SCH (13:57)
[2021-01-05 14:27] LABS: Hemoglobin 10.8 g/dL (12.0-16.0)
[2021-01-05 14:47] LABS: Troponin I 0.028 ng/mL (< 0.028)
[2021-01-05] MEDS ORDERED: Acetaminophen 325 MG TAB PO SCH (16:23)
[2021-01-05] MEDS: Dronedarone HCl 400 MG TAB PO SCH (17:05)
[2021-01-05] MEDS: Acetaminophen 500 MG TAB PO SCH (17:06)
[2021-01-05] MEDS: Fentanyl 100 MCG/2 ML VIAL SLOW IVP PRN ×3 (17:10→17:25)
[2021-01-05 18:01] LABS: Bacteria/HPF None Seen HPF (None Seen); Bilirubin Negative (Negative); Blood, Urine Negative (Negative); Clarity Clear (Clear); Glucose, Urine (Dipstick) Normal (Negative); Ketone, Urine Negative (Negative); Leukocyte Negative Leu/uL (Negative); Nitrite Negative (Negative); Protein, Urine (Dipstick) 50 mg/dL (Neg-Trace); Squamous Epithelial 0-3 HPF (0-3); Urobilinogen Normal mg/dL (Less than 2); WBC/HPF 0-3 HPF (0-3); pH, Urine 5.5 (5.0-9.0)
[2021-01-05 18:03] LABS: Specific Gravity, Urine 1.051 (1.002-1.036)
[2021-01-05 18:04] LABS: Urine Culture Reflex No No
[2021-01-05] MEDS: Arformoterol 15 MCG/2 ML NEB NEB SCH (18:33)
[2021-01-05] MEDS: Atorvastatin Calcium 10 MG TAB PO SCH (20:14)
[2021-01-05] MEDS: cloNIDine 0.1 MG TAB PO SCH (20:14)
[2021-01-05] MEDS ORDERED: Famotidine 20 MG TAB PO SCH (21:00)
[2021-01-06] MEDS: Acetaminophen 500 MG TAB PO SCH ×4 (02:06→18:09)
[2021-01-06] MEDS: Fentanyl 100 MCG/2 ML VIAL SLOW IVP PRN (04:50)
[2021-01-06] MEDS: Levothyroxine Sodium 75 MCG TAB PO SCH (04:52)
[2021-01-06 06:33] LABS: Band 7 % (5-11); Hemoglobin 10.3 g/dL (12.0-16.0); Lymphocytes 16 % (21-51); MDiff Complete? YES; Mean Corpuscular HGB CONC 35.4 g/dL (32.0-36.0); Mean Corpuscular Hemoglobin 32.1 pg (27.0-31.0); Mean Corpuscular Volume 90.7 fL (78.0-98.0); Mean Platelet Volume 8.6 fL (7.4-10.4); Monocytes 6 % (0-10); Neutrophil 71 % (42-75); Platelet Count 114 thou/uL (130-400); Platelet Morphology Comment Appears Decreased; RBC Distribution Width 12.6 % (11.5-14.5); Red Blood Cell (RBC) Count 3.22 mill/uL (4.20-5.40); White Blood Cell (WBC) Count 13.3 thou/uL (4.8-10.8)
[2021-01-06 06:35] LABS: Anion Gap 11 mmol/L (10-20); BUN (Urea Nitrogen) 26 mg/dL (9.8-20.1); Calc. Creatinine Clearance 31 mL/min (70-130); Calcium 8.4 mg/dL (7.8-10.44); Carbon Dioxide 22 mmol/L (23-31); Chloride 99 mmol/L (98-107); Glucose 101 mg/dL (83-110); Potassium 3.9 mmol/L (3.5-5.1); Sodium 128 mmol/L (136-145)
[2021-01-06] MEDS: Arformoterol 15 MCG/2 ML NEB NEB SCH ×2 (08:16→18:12)
[2021-01-06] MEDS: cloNIDine 0.1 MG TAB PO SCH ×2 (08:50→20:39)
[2021-01-06] MEDS: Dronedarone HCl 400 MG TAB PO SCH ×2 (08:51→18:09)
[2021-01-06] MEDS: Losartan 25 MG TAB PO SCH (08:52)
[2021-01-06] MEDS ORDERED: Amlodipine 10 MG TAB PO SCH (09:00)
[2021-01-06 10:25] LABS: Vancomycin, Random 7.9 ug/mL (See Comment)
[2021-01-06] MEDS ORDERED: Vancomycin 1 GM in Premix Bag 1 BAG IVPB SCH ×2 (11:00→11:45)
[2021-01-06] MEDS: Cefepime 2 GM in Sodium Chloride 0.9% 100 ML IVPB SCH (13:04)
[2021-01-06] MEDS ORDERED: Fioricet 325/50/40 mg Tablet PO PRN (15:01)
[2021-01-06] MEDS ORDERED: guaiFENesin ER 600 MG TAB PO SCH ×3 (15:15→21:00)
[2021-01-06] MEDS: Atorvastatin Calcium 10 MG TAB PO SCH (20:39)
[2021-01-06] MEDS: guaiFENesin ER 600 MG TAB PO SCH (20:39)
[2021-01-07] MEDS: Acetaminophen 500 MG TAB PO SCH ×4 (00:05→17:06)
[2021-01-07] MEDS: Levothyroxine Sodium 75 MCG TAB PO SCH (05:52)
[2021-01-07 06:01] LABS: #Monocytes 0.7 thou/uL (0.11-0.59); #Neutrophils 6.6 thou/uL (1.40-6.50); %Basophils 0.1 % (0.0-1.0); %Eosinophils 0.1 % (0.0-10.0); %Lymphocytes 12.5 % (21.0-51.0); %Monocytes 7.9 % (0.0-10.0); %Neutrophils 79.3 % (42.0-75.0); Hemoglobin 9.9 g/dL (12.0-16.0); Mean Corpuscular Hemoglobin 31.1 pg (27.0-31.0); Mean Corpuscular Volume 91.5 fL (78.0-98.0); Platelet Count 117 thou/uL (130-400); RBC Distribution Width 12.7 % (11.5-14.5); Red Blood Cell (RBC) Count 3.18 mill/uL (4.20-5.40); White Blood Cell (WBC) Count 8.3 thou/uL (4.8-10.8)
[2021-01-07 06:24] LABS: Anion Gap 12 mmol/L (10-20); BUN (Urea Nitrogen) 19 mg/dL (9.8-20.1); Calc. Creatinine Clearance 38 mL/min (70-130); Calcium 9.2 mg/dL (7.8-10.44); Carbon Dioxide 25 mmol/L (23-31); Chloride 104 mmol/L (98-107); Glucose 97 mg/dL (83-110); Potassium 4.5 mmol/L (3.5-5.1); Sodium 136 mmol/L (136-145)
[2021-01-07] MEDS: Arformoterol 15 MCG/2 ML NEB NEB SCH ×2 (06:36→19:43)
[2021-01-07] MEDS: Dronedarone HCl 400 MG TAB PO SCH ×2 (09:19→17:06)
[2021-01-07] MEDS: cloNIDine 0.1 MG TAB PO SCH ×2 (09:19→21:01)
[2021-01-07] MEDS: Losartan 25 MG TAB PO SCH (09:20)
[2021-01-07] MEDS: guaiFENesin ER 600 MG TAB PO SCH ×2 (09:20→21:01)
[2021-01-07] MEDS: Cefepime 2 GM in Sodium Chloride 0.9% 100 ML IVPB SCH (11:48)
[2021-01-07 12:36] LABS: Vancomycin, Random 11.7 ug/mL (See Comment)
[2021-01-07] MEDS: VANCOMYCIN 1.25 GM/250 ML BAG 1.25 GM in Premix Bag 1 BAG IVPB SCH (13:15)
[2021-01-07] MEDS ORDERED: predniSONE 20 MG TAB PO SCH (16:00)
[2021-01-07] MEDS ORDERED: hydrALAZINE 20 MG/ML VIAL SLOW IVP PRN (16:49)
[2021-01-07] MEDS: Atorvastatin Calcium 10 MG TAB PO SCH (21:01)
[2021-01-07] MEDS: ALPRAZolam 0.5 MG TAB PO SCH (21:01)
[2021-01-08] MEDS: Acetaminophen 500 MG TAB PO SCH ×4 (00:58→17:27)
[2021-01-08 05:16] LABS: Hemoglobin 9.9 g/dL (12.0-16.0); Platelet Count 144 thou/uL (130-400)
[2021-01-08 05:41] LABS: Albumin 3.2 g/dL (3.4-4.8); Anion Gap 9 mmol/L (10-20); BUN (Urea Nitrogen) 17 mg/dL (9.8-20.1); Calc. Creatinine Clearance 41 mL/min (70-130); Calcium 9.9 mg/dL (7.8-10.44); Carbon Dioxide 25 mmol/L (23-31); Chloride 105 mmol/L (98-107); Glucose 181 mg/dL (83-110); Phosphorus 2.9 mg/dL (2.3-4.7); Potassium 4.4 mmol/L (3.5-5.1); Sodium 135 mmol/L (136-145)
[2021-01-08] MEDS: Levothyroxine Sodium 75 MCG TAB PO SCH (06:18)
[2021-01-08] MEDS: Arformoterol 15 MCG/2 ML NEB NEB SCH ×2 (06:58→18:05)
[2021-01-08] MEDS: Dronedarone HCl 400 MG TAB PO SCH ×2 (07:43→17:27)
[2021-01-08] MEDS: predniSONE 20 MG TAB PO SCH (07:44)
[2021-01-08] MEDS: cloNIDine 0.1 MG TAB PO SCH ×2 (07:45→21:31)
[2021-01-08] MEDS: guaiFENesin ER 600 MG TAB PO SCH ×2 (07:46→21:32)
[2021-01-08] MEDS: Losartan 25 MG TAB PO SCH (07:46)
[2021-01-08 09:05] LABS: Bacteria/HPF None Seen HPF (None Seen); Bilirubin Negative (Negative); Blood, Urine Negative (Negative); Clarity Clear (Clear); Glucose, Urine (Dipstick) Normal (Negative); Ketone, Urine Negative (Negative); Leukocyte Negative Leu/uL (Negative); Nitrite Negative (Negative); Protein, Urine (Dipstick) 20 mg/dL (Neg-Trace); RBC/HPF 0-3 HPF (0-3); Specific Gravity, Urine 1.013 (1.002-1.036); Squamous Epithelial None Seen HPF (0-3); Urobilinogen Normal mg/dL (Less than 2); WBC/HPF None Seen HPF (0-3); pH, Urine 5.5 (5.0-9.0)
[2021-01-08 09:08] LABS: Urine Culture Reflex No No
[2021-01-08 09:21] LABS: Creatinine, Urine 47.52 mg/dL (47-110)
[2021-01-08] MEDS: Cefepime 2 GM in Sodium Chloride 0.9% 100 ML IVPB SCH (13:57)
[2021-01-08] MEDS: VANCOMYCIN 1.25 GM/250 ML BAG 1.25 GM in Premix Bag 1 BAG IVPB SCH (14:55)
[2021-01-08] MEDS: ALPRAZolam 0.5 MG TAB PO SCH (21:30)
[2021-01-08] MEDS: Atorvastatin Calcium 10 MG TAB PO SCH (21:30)
[2021-01-08] MEDS: Cefdinir 300 MG CAP PO SCH (21:31)
[2021-01-09] MEDS: Acetaminophen 500 MG TAB PO SCH ×2 (00:13→07:07)
[2021-01-09 03:25] VITALS: TEMP 98.2
[2021-01-09] MEDS: Arformoterol 15 MCG/2 ML NEB NEB SCH (06:49)
[2021-01-09] MEDS: Levothyroxine Sodium 75 MCG TAB PO SCH (07:08)
[2021-01-09] MEDS: Cefdinir 300 MG CAP PO SCH (09:38)
[2021-01-09] MEDS: cloNIDine 0.1 MG TAB PO SCH (09:39)
[2021-01-09] MEDS: Losartan 25 MG TAB PO SCH (09:39)
[2021-01-09] MEDS: predniSONE 20 MG TAB PO SCH (09:41)
[2021-01-09] MEDS: Dronedarone HCl 400 MG TAB PO SCH (09:41)
[2021-01-09] MEDS: guaiFENesin ER 600 MG TAB PO SCH (09:42)
[2021-01-09 09:49] VITALS: BP 188/82
[2021-01-09] MEDS ORDERED: Guaifenesin DM 100-10/5 ML UDCUP PO PRN (10:34)
== END 2021-01-09 12:20 | disposition home or self-care (01) | DRG 193 ==
LOC: 2SW 06:47 → OBSVTOIN 09:33
PROVIDERS: ADMIT Internal Medicine; ATTEND Family Medicine
DX: J15.9 Unspecified bacterial pneumonia (principal); J96.21 Acute and chronic respiratory failure with hypoxia; R04.2 Hemoptysis; N17.9 Acute kidney failure, unspecified; Q61.3 Polycystic kidney, unspecified; Z66 Do not resuscitate; Z20.822 Contact with and (suspected) exposure to COVID-19; J43.9 Emphysema, unspecified; N18.30 Chronic kidney disease, stage 3 unspecified; I71.4 Abdominal aortic aneurysm, without rupture; E03.9 Hypothyroidism, unspecified; E78.5 Hyperlipidemia, unspecified; I48.0 Paroxysmal atrial fibrillation; K21.9 Gastro-esophageal reflux disease without esophagitis; I12.9 Hypertensive chronic kidney disease with stage 1 through stage 4 chronic kidney disease, or unspecified chronic kidney disease; Z90.49 Acquired absence of other specified parts of digestive tract; Z86.711 Personal history of pulmonary embolism; Z79.01 Long term (current) use of anticoagulants; Z90.710 Acquired absence of both cervix and uterus; Z90.09 Acquired absence of other part of head and neck; Z98.890 Other specified postprocedural states; Z88.1 Allergy status to other antibiotic agents; Z88.6 Allergy status to analgesic agent; Z88.8 Allergy status to other drugs, medicaments and biological substances; Z79.890 Hormone replacement therapy; Z79.51 Long term (current) use of inhaled steroids; Z88.2 Allergy status to sulfonamides; Z88.5 Allergy status to narcotic agent; Z99.81 Dependence on supplemental oxygen; F17.210 Nicotine dependence, cigarettes, uncomplicated
CPT/HCPCS: 36415; 71045; 71275; 74174; 80048; 80053; 80069; 80202; 81001; 82533; 82570; 83930; 83935; 84156; 84443; 84484; 85007; 85014; 85018; 85025; 85027; 85049; 93005; 94640; 96374; 96375; 96376; G0378; J0360; J0692; J2270; J2405; J3010; J3370; J3490; J7050; J7512; J7620; U0002

== ENCOUNTER 2021-02-24 13:08 | Outpatient (CLI) | payer MEDICARE, OTHER | END 2021-02-24 13:09 | disposition home or self-care (01) | LOC: RAD 13:08 | PROVIDERS: ATTEND Internal Medicine Critical Care Medicine | DX: R06.00 Dyspnea, unspecified (principal) | CPT/HCPCS: 71046 ==

== ENCOUNTER 2021-03-06 14:04 | Outpatient (CLI) | payer MEDICARE, OTHER | END 2021-03-06 14:05 | disposition home or self-care (01) | LOC: CT 14:04 | PROVIDERS: ATTEND Internal Medicine Critical Care Medicine | DX: J44.9 Chronic obstructive pulmonary disease, unspecified (principal); E04.2 Nontoxic multinodular goiter | CPT/HCPCS: 71260; 82565 ==

== ENCOUNTER 2021-10-28 10:38 | Outpatient (CLI) | payer MEDICARE ==
[2021-10-28 12:24] LABS: Hemoglobin 13.4 g/dL (12.0-15.5); Mean Corpuscular HGB CONC 34.9 g/dL (32.0-36.0); Mean Corpuscular Hemoglobin 30.3 pg (27.0-33.0); Mean Corpuscular Volume 86.9 fl (81.6-98.3); Platelet Count 229 10x3/uL (150-450); RBC Distribution Width 13.2 % (11.5-14.5); Red Blood Cell (RBC) Count 4.42 10x6/uL (3.90-5.03); White Blood Cell (WBC) Count 8.4 10x3/uL (3.5-10.5)
[2021-10-28 12:38] LABS: Anion Gap 18 mmol/L (10-20); BUN (Urea Nitrogen) 29 mg/dL (9.8-20.1); Calc. Creatinine Clearance 0 mL/min (70-130); Calcium 10.3 mg/dL (7.8-10.44); Carbon Dioxide 25 mmol/L (23-31); Chloride 104 mmol/L (98-107); Estimated GFR 28; Glucose 115 mg/dL (83-110); Potassium 4.6 mmol/L (3.5-5.1); Sodium 142 mmol/L (136-145)
== END 2021-10-28 10:39 | disposition home or self-care (01) ==
LOC: LABBT 10:38
PROVIDERS: ATTEND Internal Medicine Cardiovascular Disease
DX: Z01.812 Encounter for preprocedural laboratory examination (principal); I48.4 Atypical atrial flutter; Z20.822 Contact with and (suspected) exposure to COVID-19; R94.01 Abnormal electroencephalogram [EEG]
CPT/HCPCS: 80048; 85027; 87811; 93005; 93010

== ENCOUNTER 2021-10-30 08:54 | Day surgery (SDC) | payer MEDICARE ==
[2021-10-29 11:11] VITALS: BMI 26.2
[2021-10-30] MEDS ORDERED: Lidocaine 1% PF 5 ML VIAL ONE (10:16)
[2021-10-30] MEDS ORDERED: Heparin 10,000 UNITS/ 10 ML VIAL ONE (10:16)
[2021-10-30 11:13] LABS: INR-International Normal Ratio 1.2; PTT 34.2 sec (22.9-36.1); Prothrombin Time 15.4 sec (12.0-14.7)
[2021-10-30] MEDS ORDERED: Midazolam HCl 2 mg/2 ml Vial ONE (11:25)
[2021-10-30] MEDS ORDERED: fentaNYL Citrate/PF 100 MCG/2 ML SYRINGE ONE ×2 (11:25→13:58)
[2021-10-30] MEDS ORDERED: Ketamine 50 MG/ML (10ML VIAL) ONE (11:26)
[2021-10-30] MEDS ORDERED: Propofol 500 MG/50 ML VIAL ONE (11:26)
[2021-10-30] MEDS ORDERED: Phenylephrine 10 MG/ML VIAL ONE (11:45)
[2021-10-30] MEDS ORDERED: Acetaminophen 500 MG TAB ONE (14:59)
== END 2021-10-30 16:08 | disposition home or self-care (01) ==
LOC: SDC 08:54
PROVIDERS: ATTEND Internal Medicine Cardiovascular Disease
PROC: B246ZZ4 Ultrasonography of Right and Left Heart, Transesophageal (ICD-10-PCS; principal; 2021-10-30)
PROC: 02583ZZ Destruction of Conduction Mechanism, Percutaneous Approach (ICD-10-PCS; 2021-10-30)
PROC: 02K83ZZ Map Conduction Mechanism, Percutaneous Approach (ICD-10-PCS; 2021-10-30)
PROC: 5A2204Z Restoration of Cardiac Rhythm, Single (ICD-10-PCS; 2021-10-30)
DX: I48.4 Atypical atrial flutter (principal); I34.0 Nonrheumatic mitral (valve) insufficiency; I70.0 Atherosclerosis of aorta; I48.0 Paroxysmal atrial fibrillation; I47.1 Supraventricular tachycardia; I25.10 Atherosclerotic heart disease of native coronary artery without angina pectoris; E78.5 Hyperlipidemia, unspecified; J44.9 Chronic obstructive pulmonary disease, unspecified; G47.30 Sleep apnea, unspecified; K21.9 Gastro-esophageal reflux disease without esophagitis; E03.9 Hypothyroidism, unspecified; I13.10 Hypertensive heart and chronic kidney disease without heart failure, with stage 1 through stage 4 chronic kidney disease, or unspecified chronic kidney disease; N18.9 Chronic kidney disease, unspecified; Z86.711 Personal history of pulmonary embolism; Z86.718 Personal history of other venous thrombosis and embolism; Z79.01 Long term (current) use of anticoagulants; Z79.890 Hormone replacement therapy; Z79.899 Other long term (current) drug therapy; Z88.1 Allergy status to other antibiotic agents; Z88.2 Allergy status to sulfonamides; Z88.5 Allergy status to narcotic agent; Z88.6 Allergy status to analgesic agent; Z88.8 Allergy status to other drugs, medicaments and biological substances; Z91.013 Allergy to seafood; Z95.2 Presence of prosthetic heart valve
CPT/HCPCS: 85610; 85730; 93005; 93312; 93621; 93653; J1644; J2250; J2370; J2704

== ENCOUNTER 2021-11-04 08:37 | Outpatient (CLI) | payer MEDICARE | END 2021-11-04 08:38 | disposition home or self-care (01) | LOC: RAD 08:37 | PROVIDERS: ATTEND Internal Medicine Critical Care Medicine | DX: J44.9 Chronic obstructive pulmonary disease, unspecified (principal); I51.7 Cardiomegaly | CPT/HCPCS: 71046 ==

== ENCOUNTER 2021-12-18 11:32 | Outpatient (CLI) | payer MEDICARE | END 2021-12-18 11:33 | disposition home or self-care (01) | LOC: RAD 11:32 | PROVIDERS: ATTEND Internal Medicine Critical Care Medicine | DX: R06.00 Dyspnea, unspecified (principal); J98.4 Other disorders of lung; Z98.82 Breast implant status | CPT/HCPCS: 71046 ==

== ENCOUNTER 2023-08-05 13:40 | Outpatient (CLI) | payer MEDICARE | END 2023-08-05 13:41 | disposition home or self-care (01) | LOC: RAD 13:40 | PROVIDERS: ATTEND Internal Medicine Critical Care Medicine | DX: R06.00 Dyspnea, unspecified (principal); I51.7 Cardiomegaly; I70.0 Atherosclerosis of aorta; J84.10 Pulmonary fibrosis, unspecified; R09.89 Other specified symptoms and signs involving the circulatory and respiratory systems; Z95.2 Presence of prosthetic heart valve; Z98.82 Breast implant status | CPT/HCPCS: 71046 ==

== ENCOUNTER 2024-01-27 13:02 | Outpatient (CLI) | payer MEDICARE | END 2024-01-27 13:03 | disposition home or self-care (01) | LOC: RAD 13:02 | PROVIDERS: ATTEND Internal Medicine Critical Care Medicine | DX: R06.00 Dyspnea, unspecified (principal); I51.7 Cardiomegaly; J84.9 Interstitial pulmonary disease, unspecified | CPT/HCPCS: 71046 ==